=== PATIENT | male | born 1955 | race Caucasian/White ===

== ENCOUNTER 2016-07-27 23:47 | Emergency (ER) | payer BC ==
[~2016-07-27] VITALS: Ht 170.2 cm; Wt 75.0 kg
[~2016-07-27 23:47] MED LIST: BENADRYL50 MG PO; LOPRESSOR 550 MG/TAB PO; NITROSTAT0.6 MG SL; NKDA; NO HOME MEDICATIONS; PLAVIX 75MG TAB75 MG PO; PREDNISONE20 MG PO
[2016-07-27 23:48] VITALS: TEMP 97
[2016-07-28 00:18] LABS: BASO # 0.1 (0.0-0.2); BASO % 1.2 % (0.0-2.0); EOS # 0.4 (0.0-0.7); GRAN % 51.7 % (42.2-75.2); HEMATOCRIT 49.8 % (42.0-52.0); HEMOGLOBIN 17.4 g/dl (13.5-18.0); LYMPH # 2.2 (1.2-3.4); LYMPH % 28.6 % (20.0-51.0); MEAN CELL VOLUME 99 fl (80.0-100.0); MEAN CORPUSCULAR HEMOGLOBIN 35 pg (27.0-31.0); MEAN CORPUSCULAR HGB CONC 35 g/dl (33.0-37.0); MEAN PLATELET VOLUME 8.7 fl (7.4-10.4); MONO % 12.9 % (1.7-9.3); PLATELET COUNT 363 K/mm3 (130-400); RED BLOOD COUNT 5.05 M/mm3 (4.20-5.60); REDCELL DISTRIBUTION WIDTH-CV 13.4 % (11.5-14.5); WHITE BLOOD COUNT 7.8 K/mm3 (4.8-10.8)
[2016-07-28 00:28] LABS: ANION GAP 20 mmol/L (7-16); BLOOD UREA NITROGEN 12 mg/dL (9-20); CALCIUM 9.1 mg/dL (8.4-10.2); CARBON DIOXIDE 19 mmol/L (22-30); CHLORIDE 106 mmol/L (98-107); CREATININE, serum 0.77 mg/dL (0.66-1.25); GLUCOSE 83 mg/dL (74-106); POTASSIUM 3.4 mmol/L (3.4-5.0); SODIUM 145 mmol/L (137-145)
[2016-07-28 00:41] LABS: TROPONIN-I < 0.012 ng/mL (0.000-0.034)
[2016-07-28 00:44] LABS: PROLACTIN 27.5 ng/mL (3.7-17.9)
[2016-07-28 02:08] VITALS: BP 104/74; PULSE 81
== END 2016-07-28 02:08 | disposition home or self-care (01) ==
LOC: COL.ER 23:47
PROVIDERS: Emergency Medicine
DX: R25.8 Other abnormal involuntary movements (principal); R41.0 Disorientation, unspecified; F17.210 Nicotine dependence, cigarettes, uncomplicated; Z95.5 Presence of coronary angioplasty implant and graft; R07.9 Chest pain, unspecified

== ENCOUNTER 2016-09-08 12:27 | Emergency (ER) | payer BC ==
[~2016-09-08] VITALS: Ht 170.2 cm; Wt 75.0 kg
[2016-09-08 12:28] VITALS: BP 159/97; TEMP 97.7
[2016-09-08] MEDS ORDERED: NORCO 325 MG-51 TAB PO (13:15)
[2016-09-08 13:27] VITALS: PULSE 67
== END 2016-09-08 13:28 | disposition home or self-care (01) ==
LOC: COL.ER 12:27
DX: M54.31 Sciatica, right side (principal); I10 Essential (primary) hypertension